=== PATIENT | male | born 1990 | race Two or more races ===

== ENCOUNTER 2024-07-18 17:52 | Emergency (ER) | payer MEDICAID, SELFPAY ==
[2024-07-18 17:53] VITALS: BMI 32.5
[2024-07-18 18:29] VITALS: BP 128/80; PULSE 64; RESP 18; TEMP 36.6; O2SAT 99
--- NOTE | 2024-07-18 18:39 | EDNOTE_ITS ---
Upper Extremity Injury RME/HPI General Chief Complaint: Extremity Injury, Upper Stated Complaint: Left wrist growth with pain x 4 mo. Time Seen by Provider: 07/18/24 18:24 Arrival date/time: 07/18/24 17:52 RME / HPI RME / HPI narrative: 34-year-old male patient came in for evaluation regarding swelling to the left wrist, volar aspect, for 4 months, getting bigger. Denies any pain denies any redness denies any other complaints no medication was taken prior to arrival Related Data Allergies Allergy/AdvReac Type Severity Reaction Status Date / Time No Known Allergies Allergy Verified 02/14/24 10:38 Review of Systems Review of Systems Narrative Review of Systems: Review of system reviewed and within normal limits except mentioned in HPI ED Exam Narrative Physical exam: VITAL SIGNS: Reviewed. GENERAL APPEARANCE: Alert and interactive, follows commands, no acute distress, HEAD AND FACE: Non-traumatic. ENT: PERRL, pink conjunctivitis, eyelid no trauma, Mucous membrane moist. NECK: Supple, nontender, no nuchal rigidity. CHEST: No tenderness, no crepitus, no paradoxical movement, no retractions. LUNGS: Clear, well ventilated, symmetric, no rales, no wheezing, no ronchi, no stridor, good breath sounds bilaterally. HEART: Regular rate, regular rhythm, no murmur, no gallops. ABDOMEN: Soft, positive bowel sounds, nondistended, no guarding, nontender, no rebound, no masses, RECTAL: Deferred. GENITAL: Deferred. NEUROLOGICAL: Gross motor function intact sensory function intact, Appropriate for age. MUSCULOSKELETAL: low back nontender, full range of motion. EXTREMITIES: 2 x 2 cm swelling, soft and fluctuant, left wrist, lateral aspect, volar aspect nontender, full range of motion. SKIN: Color pink, dry, no rash, no lacerations, no abrasions, no contusions. LYMPHATICS: Deferred. Course Quality Measures none Vital Signs Vital signs: Vital Signs Temperature 98 F 07/18/24 18:29 Pulse Rate 64 07/18/24 18:29 Respiratory Rate 18 07/18/24 18:29 Blood Pressure 128/80 07/18/24 18:29 Pulse Oximetry (%) 99 07/18/24 18:29 Oxygen Delivery Method Room Air 07/18/24 18:29 Extremity Injury MDM Narrative MDM Narrative:: 34-year-old male patient came in for evaluation regarding swelling to the left wrist, volar aspect, for 4 months, getting bigger. Denies any pain denies any redness denies any other complaints no medication was taken prior to arrival Patient is having ganglion cyst. There is no need to do emergency removal of the ganglion cyst in the emergency room. Patient was advised to follow-up with surgeon for definitive management of the ganglion cyst Patient appears nontoxic and hemodynamically stable. Patient discharged home and instructed to follow-up with primary care provider in 24 to 48 hours. Instructed to return to the emergency department immediately if worsening of symptoms Patient data External records reviewed:: None Clinical information provided by:: patient Social determinants that could affect healthcare access:: none Patient has the following chronic illnesses:: None How is presenting disease/condition affected by chronic disease/condition?: no chronic disease Evaluation data The following diagnostics were reviewed and interpreted by me:: other (specify) Lab and/or radiology exams considered but not ordered:: None Interpretation Summary: None Medications / Prescriptions Medications or Prescriptions considered but not ordered:: None Medication administrations:: None Consultations Consultation(s) initiated? (list below): No Diagnosis Upper Extremity Injury Differential Diagnosis: sprain and strain of wrist and other (Ganglion cyst wrist) Most likely diagnosis given after review of the tests above:: Ganglion cyst wirst Admission Indicated Admission indicated?: not indicated Admission Request Was there a request for admission?: No Disposition Plan Disposition Plan: Discharge Discharge Attestation Discharge Attestation: The patient was given an opportunity to ask questions and understood the discharge instructions. Discharge instructions specifically effects, indications for sooner follow up or return to the emergency department, and the expected course of current diagnosis. Patient condition: Stable Discharge Plan Plan Patient Disposition: HOME (Self Care) Disposition Comment: Stable Problem List Clinical Impression: Ganglion cyst of wrist Patient/Caregiver Discharge Instructions Discharge Activity: activity as tolerated Education Materials: ED Ganglion Cyst Additional Instructions: Thank you for the opportunity for serving you today. You are stable for discharged . You are advised to: Follow-up with your PCP in 1 to 2 days and asked for referral to general surgeon if you want your ganglion cyst be removed. Return to ED for worsening of symptoms Increase oral fluids Print Language: Kyrgyz Stand Alone Forms: Thu Award Info., Patient Portal Info Letter STEVE/OFE Supervising Physician STEVE/OFE Supervising Physician: MD Austen
== END 2024-07-18 18:50 | disposition home or self-care (01) ==
LOC: SERX 18:48
PROVIDERS: Emergency Provider Emergency Medicine
DX: M67.432 Ganglion, left wrist (principal)
CPT/HCPCS: 99281

== ENCOUNTER → 2024-11-01 | Outpatient (CLI) | payer MEDICAID, SELFPAY ==
--- NOTE | 2024-11-01 09:30 | XR_ITS ---
Examination: PA lateral chest 2 views TECHNIQUE: Upright PA lateral chest 2 views Date and time: November 01, 2024 0938 hours INDICATIONS: +PPD FINDINGS: Normal heart size Lungs are clear. Osseous structures are intact. IMPRESSION: No active disease No radiographic findings of tuberculosis
== END | disposition home or self-care (01) ==
PROVIDERS: PCP Nurse Practitioner Family; Referring Provider Nurse Practitioner Family; Visit Provider Nurse Practitioner Family
DX: R76.11 Nonspecific reaction to tuberculin skin test without active tuberculosis (principal)
CPT/HCPCS: 71046

== ENCOUNTER 2024-12-03 10:05 | Day surgery (SDC) | payer MEDICAID, SELFPAY ==
[2024-11-27 09:56] VITALS: BMI 29.9
[2024-11-27 10:35] LABS: Basophils # (Auto) 0.0 Thou/mm3 (0.0-0.2); Basophils % (Auto) 1 % (0-2.5); Eosinophils # (Auto) 0.2 Thou/mm3 (0.0-0.5); Eosinophils % (Auto) 4 % (0-10); Hematocrit 43.0 % (41.0-53.0); Hemoglobin 15.3 g/dL (13.5-16.0); Immature Granulocytes Auto 0.02 Thou/mm3 (0.00-0.00); Lymphocytes # (Auto) 2.4 Thou/mm3 (1.0-4.8); Lymphocytes % (Auto) 40 % (10-50); Mean Corpuscular HGB Conc 35.6 g/dl (31.0-37.0); Mean Corpuscular Hemoglobin 30.0 pg (25.0-35.0); Mean Corpuscular Volume 84 fL (80-100); Monocytes # (Auto) 0.4 Thou/mm3 (0.0-0.8); Monocytes % (Auto) 6 % (0-12); Neutrophils # (Auto) 2.9 Thou/mm3 (1.8-7.7); Neutrophils % (Auto) 49 % (37-80); Nucleated Red Blood Cell # 0.00 Thou/mm3 (0.00-0.00); Nucleated Red Blood Cell % 0 /100 WBC (0); Platelet Count 200 Thou/mm3 (140-440); RDW Standard Deviation 36.7 fL (35.1-43.9); Red Blood Count 5.10 Miln/mm3 (4.50-5.90); White Blood Count 5.9 Thou/mm3 (3.8-10.6)
[2024-11-27 11:04] LABS: Anion Gap 6 (7-16); BUN/Creatinine Ratio 15 Ratio (12-20); Blood Urea Nitrogen 12 mg/dL (9-23); Calcium 8.9 mg/dL (8.3-10.6); Carbon Dioxide 28.0 mMol/L (20.0-31.0); Chloride 108 mMol/L (98-107); Creatinine (Component) 0.8 mg/dL (0.6-1.3); Estimated Creatinine Clearance 105.4 mL/min (>60); Glucose 88 mg/dL (74-106); Osmolality,Calculated 281 (275-295); Potassium 4.1 mMol/L (3.4-5.1); Sodium 142 mMol/L (136-145); eGFR > 60 See Note
--- NOTE | 2024-12-02 14:56 | SUR.PREOP ---
Pt notified to come in at 1100 tomorrow for surgery.
[2024-12-03] VITALS (8 sets, daily range): BP systolic 112–135; BP diastolic 71–91; PULSE 46–77; RESP 12–18; TEMP 36.3–36.7; O2SAT 97–99; BMI 30.2
--- NOTE | 2024-12-03 13:06 | ESOP_ITS ---
Date of Procedure 12/03/24 Pre Op Diagnosis Left wrist ganglion cyst Post Op Diagnosis Left wrist ganglion cyst Procedure Excision of ganglion cyst from left breast Repair of anterior surface of radial artery Findings Ganglion cyst on the volar aspect of left wrist involving the anterior surface of the radial artery Procedure Description Patient brought into the operating room in supine position. After administration of general endotracheal anesthesia, patient's left wrist and left upper extremity prepped draped in standard surgical manner. The cyst was palpated noted to be on the volar aspect immediately above the radial artery. After administration of local anesthesia an approximately 3 cm incision was made over the cyst and dissection was deepened into soft tissue. The cyst was circumferentially dissected off surrounding tissue and up to the insertion site and underlying bone. After further dissection it was discovered that the cyst was involving the anterior surface of the radial artery. While excising the cyst wall the anterior surface of the radial artery was also excised. The defect in the radial artery was closed with interrupted sutures using 7-0 Prolene. After repair of the radial artery there was no bleeding and patient had strong pulse distally. The wound was washed and irrigated. Hemostasis was adequate and satisfactory. Soft tissue reapproximated with interrupted sutures using 3-0 Vicryl and the incision was closed with 4-0 Monocryl in subcuticular fashion. Dermabond and pressure dressings applied. Patient tolerated procedure well. He was extubated, breathing spontaneously and without difficulty and was transferred to postanesthesia care in stable condition. Instruments, needles and sponge counts were reported to be correct x 2. Anesthesia GETA and local Pathology / specimen Other (Left wrist ganglion cyst) Estimated Blood Loss 25 Condition Stable Disposition PACU Surgeon Ilda Menjivar MD Surgical Staff Operation Date: 12/03/24 13:15 Case Staff Anesthesiologist: Иван Valle RNconsumer safety officer: Rabia Kimball
--- NOTE | 2024-12-03 13:19 | SUR.PHASEI ---
1319 Patient arrived to recovery resting comfortably in [facility], LMA in place-on oxygen 3L via nasal cannula inserted into the LMA, breathing unlabored, vital signs stable, dressing intact to left arm; dermabond, gauze, tegaderm, no bleeding noted, report received from Javier IBARRA/Dr. Valle and Simón ARGUELLES
--- NOTE | 2024-12-03 14:25 | SUR.PHASEII ---
1425 Patient meets discharge criteria from recovery, awake and alert, breathing unlabored, vital signs stable, denies pain, dressing intact; no bleeding noted, provided an arm sling for support, ate two jello's and drinking cranberry juice; denies nausea, patient assisted with dressing into his clothing by this tech writer, discharge instructions given to patient and patients sister with the assistance of the telephone funeral greeter Cely ID# [id number], patients sister signed discharge instructions. Patient given all his belongings prior to discharge, transported via wheelchair and left in a private vehicle.
== END 2024-12-03 14:25 | disposition home or self-care (01) ==
PROVIDERS: PCP Family Medicine; Referring Provider Surgery; Visit Provider Surgery
PROC: (CPT 25111; principal; 2024-12-03 13:00)
DX: M67.432 Ganglion, left wrist (principal)
CPT/HCPCS: 25111; 35206; 36415; 80048; 85025; A4217; A4649; J0690; J1100; J1644; J2704; J3010; J3490